=== PATIENT | male | born 1975 | race Caucasian/White ===

== ENCOUNTER 2017-09-11 08:52 | Emergency (ER) | payer BC, OTHER ==
[2017-09-11 09:05] VITALS: BP 136/92
--- NOTE | 2017-09-11 09:18 | UC ---
Shortness of Breath HPI - HPI Summary HPI Summary: cough x 7 days cough is dry , + nasal congestion, pnd, + sob and wheezing hx of frequent pneumonia - History of Current Complaint Chief Complaint: UCRespiratory Stated Complaint: COUGH CONGESTION Time Seen by Provider: 09/11/17 09:06 Hx Obtained From: Patient Onset/Duration: Gradual Onset, Lasting Days - 5, Still Present Timing: Constant Current Severity: Moderate Dyspnea At: Rest Aggrevating Factors: Deep Breaths Associated Signs & Symptoms: Positive: Cough (Nonproductive), Wheezing, Chills, Nasal Congestion. Negative: Chest Pain w/Cough, Chest Pain Unrelated to Cough, Fever, Diaphoresis, Dizzy, Calf Pain/Swelling - Allergy/Home Medications Allergies/Adverse Reactions: Allergies Allergy/AdvReac Type Severity Reaction Status Date / Time Morphine AdvReac Intermediate Vomiting Verified 09/11/17 09:00 Home Medications: Home Medications [id number] W/ APAP [Delsym Cough + Cold D... 5-99-341-325 mg/10Ml] 1 liq PO Q6H PRN 09/11/17 [History Confirmed 09/11/17] Pseudoephedrine TAB* [Sudafed TAB*] 30 - 60 mg PO Q6H PRN 09/11/17 [History Confirmed 09/11/17] PMH/Surg Hx/FS Hx/Imm Hx Respiratory History: Pneumonia - Surgical History Surgical History: None Surgery Procedure, Year, and Place: L shoulder 06/2011. R shoulder 1992, and 1990. L axilla lymph node 1988 - Family History Known Family History: Positive: Hypertension, Diabetes, Respiratory Disease, Other - positive for contusion - Social History Alcohol Use: Rare Alcohol Amount: 1 beer a week Substance Use Type: None Smoking Status (MU): Never Smoked Tobacco Have You Smoked in the Last Year: No - Immunization History Most Recent Influenza Vaccination: June 2017 Most Recent Tetanus Shot: 2004 Most Recent Pneumonia Vaccination: 12/10/12 Review of Systems Constitutional: Chills Skin: Negative Eyes: Negative ENT: Nasal Discharge Respiratory: Shortness Of Breath, Cough Is Patient Immunocompromised?: No All Other Systems Reviewed And Are Negative: Yes Physical Exam Triage Information Reviewed: Yes Appearance: Well-Appearing, No Pain Distress, Well-Nourished Vital Signs: Initial Vital Signs Temp 98.1 F 09/11/17 08:56 Pulse 76 09/11/17 08:56 Resp 18 09/11/17 08:56 BP 136/92 09/11/17 08:56 Pulse Ox 98 09/11/17 08:56 Vital Signs Reviewed: Yes Eyes: Positive: Conjunctiva Clear ENT: Positive: Normal ENT inspection, Hearing grossly normal, Nasal congestion, Nasal drainage, TMs normal Neck exam: Normal Neck: Positive: Supple, Nontender, No Lymphadenopathy Respiratory: Positive: Chest non-tender, Lungs clear, Normal breath sounds Cardiovascular: Positive: RRR, No Murmur, Pulses Normal Skin Exam: Normal Shortness of Breath Dx - Differential Dx/Diagnosis Provider Diagnoses: bronchitis Discharge - Discharge Plan Condition: Stable Disposition: HOME Prescriptions: Azithromycin TAB* [Zithromax TAB (Z-RYAN) 250 mg #6 tabs] 2 tab PO .TODAY, THEN 1 DAILY #1 ryan Benzonatate [TESSALON 200 MG CAP] 200 mg PO Q8H PRN #21 cap PRN Reason: Cough Patient Education Materials: Acute Bronchitis (ED) Referrals: John Carrillo MD [Primary Care Provider] - 7 Days
== END 2017-09-11 09:17 | disposition home or self-care (01) ==
LOC: UCCORT 08:52
DX: J40 Bronchitis, not specified as acute or chronic (principal)
CPT/HCPCS: 99212; G0463

== ENCOUNTER 2018-03-05 03:33 | Emergency (ER) | payer BC, OTHER ==
[2018-03-05] MEDS ORDERED: NS 0.9% 1000 ML* 1,000 ML IV ONE (04:03)
[2018-03-05] MEDS ORDERED: Ketorolac INJ* 30 MG/ML 1 ML VIAL IV PUSH ONE (04:04)
[2018-03-05] MEDS ORDERED: fentaNYL* 50 MCG/ML 2 ML VIAL (100 MCG VIAL) IV SLOW PU ONE (04:04)
[2018-03-05] MEDS ORDERED: Metoclopramide IV* 5 MG/ML 2 ML VIAL IV SLOW PU ONE (04:05)
[2018-03-05 04:19] LABS: ABS Basophils 0 10^3/ul (0-0.2); ABS Eosinophils 0.3 10^3/ul (0-0.6); ABS Lymphocytes 1.6 10^3/ul (1.0-4.8); ABS Monocytes 0.5 10^3/ul (0-0.8); ABS Neutrophils 3.3 10^3/ul (1.5-7.7); ABS Nucleated RBC 0 10^3/ul; Hematocrit 45 % (42-52); Hemoglobin 15.6 g/dl (14.0-18.0); Lymphocyte % 27.7 % (25-47); Mean Corpuscular HGB Conc 35 g/dl (31-36); Mean Corpuscular Hemoglobin 31 pg (27-31); Mean Corpuscular Volume 88 fL (80-94); Mean Platelet Volume 8.4 um3 (7.4-10.4); Nucleated Red Blood Cells % 0.1; Platelet Count 219 10^3/ul (150-450); Red Blood Count 5.08 10^6/ul (4.0-5.4); Red Cell Distribution Width 14 % (10.5-15); White Blood Count 5.7 10^3/ul (3.5-10.8)
[2018-03-05 04:21] LABS: Urine Appearance Cloudy; Urine Blood 3+ (Negative); Urine Color Yellow; Urine Ketones Negative (Negative); Urine Protein 1+(30 mg/dL) (Negative); Urine Urobilinogen Negative (Negative)
[2018-03-05 04:34] LABS: EGFR Non-African American 101.6 (>60)
[2018-03-05] MEDS ORDERED: Tamsulosin CAP* 0.4 MG PO ONE (05:21)
[2018-03-05 05:31] VITALS: BP 126/81
--- NOTE | 2018-03-05 05:41 | ED ---
Tra Malin Rebecca, scribed for Rui Calles MD on 03/05/18 at 0350 . GI/ HPI - HPI Summary HPI Summary: Pt is a 42 y/o M who presents to ED c/o right testicular pain. Pain began 1 hour ago, waking him up from sleep. Initially, pain was severe, though it is now moderate, ranked 5/10. Describes the sensation as that it "feels like it's in a vice." Did not take any medication for pain [employer]. Additionally c/o diarrhea. Denies N/V and testicular swelling. No trauma. Prior similar episode 20 years ago when he had kidney stones. - History of Current Complaint Chief Complaint: EDUrogenitalProblems Time Seen by Provider: 03/05/18 03:47 Stated Complaint: FLANK PAIN Hx Obtained From: Patient Onset/Duration: Started Hours Ago - 1 hour ago, Still Present Severity: Severe Current Severity: Moderate Pain Intensity: 5 Additional Locations for Males: Testicles - Right Associated Signs and Symptoms: Positive: Diarrhea. Negative: Nausea, Vomiting Aggravating Factor(s): Nothing Alleviating Factor(s): Nothing - Allergy/Home Medications Allergies/Adverse Reactions: Allergies Allergy/AdvReac Type Severity Reaction Status Date / Time morphine AdvReac Intermediate Vomiting Verified 03/05/18 03:42 PMH/Surg Hx/FS Hx/Imm Hx Endocrine/Hematology History: Denies: Hx Diabetes, Hx Thyroid Disease Comment Only: Other Endocrine/Hematological Disorders - lymph node removal left armpiy 1988 Cardiovascular History: Denies: Hx Hypercholesterolemia, Hx Hypertension, Hx Pacemaker/ICD, Hx Peripheral Vascular Disease Respiratory History: Reports: Hx Asthma, Hx Pneumonia - 11/2013 at [facility] [place], [place] Denies: Other Respiratory Problems/Disorders GI History: Reports: Hx Irritable Bowel History: Reports: Hx Kidney Stones - 1999 Musculoskeletal History: Reports: Hx Back Problems, Other Musculoskeletal History - shoulder reconstruction Denies: Hx Arthritis, Hx Osteoporosis Sensory History: Denies: Hx Cataracts, Hx Contacts or Glasses, Hx Glaucoma, Hx Hearing Aid Opthamlomology History: Denies: Hx Cataracts, Hx Contacts or Glasses, Hx Glaucoma Neurological History: Denies: Hx Headaches, Hx Seizures, Hx Transient Ischemic Attacks (TIA) Psychiatric History: Denies: Hx Anxiety, Hx Depression, Hx Panic Disorder - Surgical History Surgery Procedure, Year, and Place: L shoulder 06/2011. R shoulder 1992, and 1990. L axilla lymph node 1988 Infectious Disease History: No Infectious Disease History: Denies: Traveled Outside the [place] in Last 30 Days - Family History Known Family History: Positive: Hypertension, Diabetes, Respiratory Disease, Other - positive for contusion - Social History Alcohol Use: Rare Alcohol Amount: 1-2 drinks per week Hx Substance Use: No Substance Use Type: Reports: None Hx Tobacco Use: No Smoking Status (MU): Never Smoked Tobacco Have You Smoked in the Last Year: No Review of Systems Negative: Fever Positive: Diarrhea. Negative: Vomiting, Nausea Positive: pain - Right testicle, other - NEGATIVE: Testicular swelling All Other Systems Reviewed And Are Negative: Yes Physical Exam - Summary Physical Exam Summary: VITAL SIGNS: Reviewed. GENERAL: ~Patient is an obese male who is lying comfortable in the stretcher. Patient is not in any acute respiratory distress. HEAD AND FACE: No signs of trauma. No ecchymosis, hematomas or skull depressions. No sinus tenderness. EYES: PERRLA, EOMI x 2, No injected conjunctiva, no nystagmus. EARS: Hearing grossly intact. Ear canals and tympanic membranes are within normal limits. MOUTH: Oropharynx within normal limits. NECK: Supple, trachea is midline, no adenopathy, no JVD, no carotid bruit, no c- spine tenderness, neck with full ROM. CHEST: Symmetric, no tenderness at palpation LUNGS: Clear to auscultation bilaterally. No wheezing or crackles. CVS: Regular rate and rhythm, S1 and S2 present, no murmurs or gallops appreciated. ABDOMEN: Soft, mild RLQ tenderness. No signs of distention. No rebound no guarding, and no masses palpated. Bowel sounds are normal. EXTREMITIES: FROM in all major joints, no edema, no cyanosis or clubbing. NEURO: Alert and oriented x 3. No acute neurological deficits. Speech is normal and follows commands. SKIN: Dry and warm Inguinal: Right testicle is lower than the left testicle with mild tenderness and without swelling or erythema Triage Information Reviewed: Yes Vital Signs On Initial Exam: Initial Vitals Temp Pulse Resp BP Pulse Ox 96.8 F 69 16 134/80 97 03/05/18 03:38 03/05/18 03:38 03/05/18 03:38 03/05/18 03:38 03/05/18 03:38 Vital Signs Reviewed: Yes Diagnostics - Vital Signs Vital Signs Temp Pulse Resp BP Pulse Ox 03/05/18 03:38 96.8 F 69 16 134/80 97 - Laboratory Result Diagrams: 03/05/18 04:10 03/05/18 04:10 Lab Statement: Any lab studies that have been ordered have been reviewed, and results considered in the medical decision making process. - CT CT Abd/Pel CT Interpretation: Positive (See Comments) - Positive for a 3.7 mm obstructing distal right ureteral stone (slightly proximal to the right UPJ). This is causing mild right hydronephrosis/hydroureter. Nonobstructing left renal stone. No left urinary tract obstruction. No other acute intra-abdominal abnormalities. Probable mangioma L4 vertebral body. ED physician reviewed this report. Pending official report. CT Interpretation Completed By: Radiologist Re-Evaluation - Re-Evaluation First Eval Re-Evaluation Time: 05:23 Change: Improved Comment: Discussed results. The pt is currently pain free. GIGU Course/Dx - Course Assessment/Plan: Pt is a 42 y/o M who presents to ED c/o right testicular pain for 1 hour, initially severe, now moderate, described as that it "feels like it' s in a vice." Did not take any medication for pain [employer]. Additionally c/o diarrhea. Denies N/V and testicular swelling. No trauma. Prior similar episode 20 years ago when he had kidney stones. CT Abd/pel reveals a 3.7 mm obstructing distal right ureteral stone with full impression above. Blood work and UA were done. UA had 3+ blood, 3+ RBV and 1+ protein. In the ED course, pt received fentanyl, Toradol, Reglan, Flomax and fluids which improved symptoms and on reevaluation, the pt is pain free. Pt will be D/C to home with Dx of renal colic and right ureteral stone with Rx for Percocet and Floma and a follow up with urology. He understands and agrees. Allergy noted. - Diagnoses Provider Diagnoses: Right ureteral stone, Renal colic Discharge - Sign-Out/Discharge Documenting (check all that apply): Discharge/Admit/Transfer - Discharge - Discharge Plan Condition: Stable Disposition: HOME Prescriptions: oxyCODONE/Acetamin 5/325 MG* [Percocet 5/325 TAB*] 1 tab PO Q6H PRN #14 tab MDD 4 PRN Reason: Pain Tamsulosin CAP* [Flomax CAP*] 0.4 mg PO DAILY #7 cap Patient Education Materials: Renal Colic (ED), Ureteral Stones (ED) Referrals: John Carrillo MD [Primary Care Provider] - 3 Days Matt Allen MD [Medical Doctor] - 3 Days Additional Instructions: RETURN TO ED FOR ANY NEW OR WORSENING SYMPTOMS. The documentation as recorded by the Tra david Rebecca accurately reflects the service I personally performed and the decisions made by Stevan gomez Abdul, MD.
--- NOTE | 2018-03-05 08:05 | RAD ---
CLINICAL HISTORY: Flank pain COMPARISON: None TECHNIQUE: Multiple contiguous axial CT scans were obtained of the abdomen and pelvis, without intravenous contrast enhancement. Coronal and sagittal multiplanar reformations are submitted for review. FINDINGS: The study is limited by the lack of intravenous contrast. This limits evaluation of the solid organs and vasculature. LUNG BASES: The lung bases are clear. LIVER: The liver is normal in shape, size, contour, and attenuation. BILE DUCTS: There is no intrahepatic or extrahepatic biliary dilatation. GALLBLADDER: The gallbladder is normal, without pericholecystic inflammatory change. PANCREAS: The pancreas is normal, without mass or ductal dilatation. SPLEEN: There are calcified granulomas of the spleen. UPPER GI TRACT: Evaluation of the gastrointestinal tract is limited by incomplete gastric distention. The upper GI tract is unremarkable. SMALL BOWEL AND MESENTERY: The small bowel is normal in contour, course, and caliber. There is no obstruction or dilatation. COLON: The colon is normal in contour, course, caliber. There is no pericolonic inflammatory change. There is a tubular, vermiform, hollow viscus that is blind ending, and originates from the cecum, consistent with a normal appendix. There is no periappendiceal inflammatory change. Best seen on axial images 91 through 109. ADRENALS: Normal bilaterally. KIDNEYS: There is prominent column of Theodore on the right with partial dislocation of the right renal collecting system. There is a 0.4 cm calculus of the distal right ureter. There is mild hydroureter. There is nonobstructing 0.2 cm left renal calyceal stone. BLADDER: The bladder is incompletely distended but is grossly normal. PELVIC ORGANS: The prostate gland is normal. The seminal vesicles are symmetric. AORTA: The aorta is normal. IVC: Unremarkable LYMPH NODES: There is no lymphadenopathy by size criteria. ABDOMINAL WALL: There is no evidence for abdominal wall hernia. BONES AND SOFT TISSUES: Degenerative changes are noted most advanced at L4-L5 and L5-S1. There is a hemangioma of L4. OTHER: None IMPRESSION: BILATERAL NEPHROLITHIASIS INCLUDING A 0.4 CM CALCULUS OF THE DISTAL RIGHT URETER WITH MILD HYDRONEPHROSIS.
== END 2018-03-05 05:44 | disposition home or self-care (01) ==
LOC: ED 03:33
DX: N13.2 Hydronephrosis with renal and ureteral calculous obstruction (principal); R19.7 Diarrhea, unspecified; Z87.442 Personal history of urinary calculi; Z88.5 Allergy status to narcotic agent
CPT/HCPCS: 36415; 74176; 80053; 81003; 81015; 83690; 83735; 85025; 86140; 96361; 96374; 96375; 99283; J1885

== ENCOUNTER 2018-05-03 19:39 | Emergency (ER) | payer SELFPAY ==
[2018-05-03 19:59] VITALS: BP 137/93
--- NOTE | 2018-05-03 21:27 | UC ---
Lower Extremity/Ankle HPI - HPI Summary HPI Summary: c/o - History of Current Complaint Chief Complaint: UCLowerExtremity Stated Complaint: ANKLE INJURY Time Seen by Provider: 05/03/18 20:37 Hx Obtained From: Patient Onset/Duration: Sudden Onset, Lasting Days Severity Initially: Mild Severity Currently: Mild Pain Intensity: 3 Aggravating Factor(s): Standing, Ambulation Alleviating Factor(s): Rest, Elevation, Ice Able to Bear Weight: Yes - Risk Factors Gout Risk Factors: Age Over 40, Male DVT Risk Factors: Negative Septic Arthritis Risk Factor: Negative - Allergies/Home Medications Allergies/Adverse Reactions: Allergies Allergy/AdvReac Type Severity Reaction Status Date / Time morphine AdvReac Intermediate Vomiting Verified 05/03/18 19:59 PMH/Surg Hx/FS Hx/Imm Hx Previously Healthy: Yes - Surgical History Surgical History: Yes Surgery Procedure, Year, and Place: L shoulder 06/2011. R shoulder 1992, and 1990. L axilla lymph node 1988 - Family History Known Family History: Positive: Hypertension, Diabetes, Respiratory Disease, Other - positive for contusion - Social History Alcohol Use: Occasionally Alcohol Amount: 1-2 drinks per week Substance Use Type: None Smoking Status (MU): Never Smoked Tobacco Have You Smoked in the Last Year: No - Immunization History Most Recent Influenza Vaccination: June 2017 Most Recent Tetanus Shot: 2004 Most Recent Pneumonia Vaccination: 12/10/12 Review of Systems Musculoskeletal: Arthralgia, Myalgia All Other Systems Reviewed And Are Negative: Yes Physical Exam Triage Information Reviewed: Yes Appearance: Well-Appearing, No Pain Distress, Obese Vital Signs: Initial Vital Signs Temp 98.2 F 05/03/18 19:56 Pulse 86 05/03/18 19:56 Resp 18 05/03/18 19:56 BP 137/93 05/03/18 19:56 Pulse Ox 99 05/03/18 19:56 Vital Signs Reviewed: Yes Eyes: Positive: Conjunctiva Clear ENT: Positive: Hearing grossly normal Neck: Positive: Supple Respiratory: Positive: Chest non-tender Cardiovascular: Positive: Pulses Normal, Brisk Capillary Refill Musculoskeletal: Positive: Strength Intact, ROM Intact, Edema @ - lateral aspect right ankle. Loíza negative Skin Exam: Normal Lower Extremity Course/Dx - Course Course Of Treatment: LORENA bandage placed. Xray negative for fracture, has OA changes on ankle joint and thickened fibula on distal third, possible old injury. Elevate, ICE, referred PT - Differential Dx/Diagnosis Provider Diagnoses: right ankle sprain Discharge - Sign-Out/Discharge Documenting (check all that apply): Patient Departure, Post-Discharge Follow Up - Discharge Plan Condition: Good Disposition: HOME Patient Education Materials: Ibuprofen (By mouth), Ankle Sprain (ED) Referrals: John Carrillo MD [Primary Care Provider] - Additional Instructions: referral to PT - Billing Disposition and Condition Condition: GOOD Disposition: Home
--- NOTE | 2018-05-04 07:25 | RAD ---
Indication: Right ankle pain after fall. 3 views of the right ankle demonstrate soft tissue swelling laterally. No fracture is noted. Ankle mortise is unremarkable. Old injury of the fibular diaphysis is noted. IMPRESSION: No fracture is noted. Old injury of the fibula. Soft tissue swelling is noted. R0
== END 2018-05-03 21:31 | disposition home or self-care (01) ==
LOC: UCEAST 19:39
DX: S93.401A Sprain of unspecified ligament of right ankle, initial encounter (principal); X58.XXXA Exposure to other specified factors, initial encounter; Y93.9 Activity, unspecified; Y92.9 Unspecified place or not applicable; Z88.5 Allergy status to narcotic agent; Z82.49 Family history of ischemic heart disease and other diseases of the circulatory system; Z83.3 Family history of diabetes mellitus; Z83.6 Family history of other diseases of the respiratory system
CPT/HCPCS: 99212; G0463

== ENCOUNTER → 2019-01-06 10:18 | Day surgery (SDC) | payer BC ==
--- NOTE | 2019-01-04 21:04 | HP ---
HISTORY AND PHYSICAL: DATE OF PLANNED ADMISSION AND SURGERY: 01/06/19 HISTORY OF PRESENT ILLNESS: Mr. Brandt is a 43-year-old white male who is admitted with a distal left ureteral calculus for cystoscopy, left ureteroscopy , laser lithotripsy, and left ureteral stent insertion. Mr. Brandt has past history of renal calculus disease and about 10 months ago, he spontaneously passed a right ureteral calculus. On 09/27/18, while in [place], [place], he had an episode of severe left renal colic. He went to the emergency room there and had a CT, which showed a small calculus in the proximal left ureter associated with mild hydronephrosis. He was managed conservatively and placed on pain medication. He was followed in my office and had a followup renal ultrasound, and then a CT of the abdomen and pelvis on 12/07/18 showing a 4-mm calculus in the distal left ureter without associated hydronephrosis. He was continued to be managed conservatively.He presented back to my office 2 days prior to this admission with severe left flank pain associated with nausea. He did not have any fever or chills. He had a renal ultrasound in the office, which showed mild left hydroureteronephrosis and a 5-mm calculus in the distal left ureter 1.5 cm proximal to the ureterovesical junction. Because of the above history and the duration of his symptoms, the patient is admitted for the above procedure. PAST MEDICAL HISTORY AND SYSTEM REVIEW: He is very healthy. He has a long history of back pain and disk disease. MEDICATIONS: He is on no chronic medications. ALLERGIES: He has no allergies to medication, but he reports having an unpleasant reaction to morphine. FAMILY HISTORY: Negative. 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 He is a nonsmoker. PHYSICAL EXAMINATION GENERAL: He is an obese white male, who looks his age. VITAL SIGNS: Blood pressure 150/80, pulse of 66. LUNGS: Clear. HEART: Regular and rhythmic. No murmurs. ABDOMEN: Soft. There is [id number] left CVA tenderness. IMPRESSION: Recurrent episodes of left renal colic that started 3-1/2 months ago with a 5-mm calculus in the distal left ureter. PLAN: Considering the above history and the duration of his symptoms, the plan is for left ureteroscopy, laser lithotripsy, and left ureteral stent insertion. I discussed the above plans with the patient and his . He is supposed to strain his urine very carefully until the procedure, and he was instructed to call the office if the stone has passed spontaneously. [id number]/CPS #: [id number] MTDD
[~2019-01-06 10:18] MED LIST: Acetaminophen TAB* 325 MG ONE; Acetaminophen TAB* 325 MG PO PRN; Buffered Lidocaine 1% SYRIN* 1 ML/SYRINGE INTRADERM ONE; Chloroprocaine 2%* 20 ML VIAL ONE; Dexamethasone IV* 4 MG/ML 1 ML (4 MG) IV SLOW PU ONE; Dexamethasone IV* 4 MG/ML 1 ML (4 MG) ONE; DiMENhydriNATE IV* 50 MG/ML VIAL IV PUSH PRN; Famotidine TAB* 20 MG ONE; Famotidine TAB* 20 MG PO ONE; Furosemide IV* 10 MG/ML 2 ML VIAL (20 MG) ONE; HYDROcodone/ACETAMIN 5-325 MG* 1 TAB PO PRN; Iohexol 180 (CONTRAST) 10 ML SDV IV ONE; Ketorolac INJ* 30 MG/ML 1 ML VIAL IV PRN; Lactated Ringers 1000 ML Bag* 1,000 ML IV SCH; Lidocaine 2% PF * 5 ML VIAL ONE; Midazolam* 1 MG/ML 2 ML VIAL (2 MG) ONE; Naloxone* 0.4 MG/ML 1 ML VIAL IV PRN; Ondansetron INJ* 2 MG/ML VIAL IV PRN; Ondansetron INJ* 2 MG/ML VIAL ONE; PROCHLORPERAZINE INJ 5 MG/ML 2 ML VIAL IV PRN; Propofol* 10 MG/ML 20 ML BTL ONE; Scopolamine 1.5 mg* PATCH ONE; Scopolamine 1.5 mg* PATCH TRANSDERM SCH; cefTRIAXone(*) 2 GM ADDV.VIAL IVPB ONE; fentaNYL* 50 MCG/ML 2 ML VIAL (100 MCG VIAL) IV PRN; fentaNYL* 50 MCG/ML 2 ML VIAL (100 MCG VIAL) ONE
[2019-01-06 15:51] VITALS: BP 136/87
--- NOTE | 2019-01-06 22:25 | OP ---
DATE OF OPERATION: 01/06/19 - [facility] DATE OF : 75 SURGEON: Matt Allen MD ANESTHESIOLOGIST: Dr. Casanova. ANESTHESIA: General. PRE-OP DIAGNOSIS: Distal left ureteral calculus (5 mm). POST-OP DIAGNOSIS: Distal left ureteral calculus (5 mm). OPERATIVE PROCEDURE: Cystoscopy, left ureteroscopy, extraction of left ureteral calculus, left retrograde pyelography. INDICATION FOR PROCEDURE: Mr. Brandt is a 43-year-old white male who had an episode of left renal colic 3-1/2 months ago. He had a CT which showed a small proximal left ureteral calculus. He was managed conservatively and, over the last several months, he has been having on and off episodes of left flank pain. He presented to the office two days ago with three days' history of recurrent episodes of severe left renal colic. Renal and full bladder ultrasound showed mild left hydroureteronephrosis and a 5 to 6 mm calculus in the distal left ureter. Because of the above history and findings and the duration of his symptoms, the patient is admitted for endoscopic stone extraction. PATHOLOGY AT CYSTOSCOPY: The penile and bulbar urethrae looked normal. The prostatic urethra was short and open. Examination of the bladder showed normal mucosa. The ureteral orifices looked normal. There were no suspicious bladder lesion seen. No calculi or diverticula were noted. There was an impacted calculus measuring about 5 mm in size, located in the distal left ureter, about 1 cm proximal to the orifice. The calculus was irregular and had some sharp edges explaining why the stone has not passed in all this time. The calculus had the gross appearance of a calcium oxalate stone. Left retrograde pyelography showed minimal hydronephrosis. DESCRIPTION OF PROCEDURE: After successful general anesthesia, the patient was placed in the lithotomy position and was prepped and draped for a cystoscopy. Cystoscopy was performed. The bladder was carefully inspected and the above findings were noted. A flexible-tip guidewire was then introduced into the left orifice. Initially, the guidewire could not be pushed beyond the level of the stone because of its impaction. After several attempts, the guidewire was successfully introduced and positioned in the area of the renal pelvis. A size 6.5 semi-rigid tapered ureteroscope was then introduced inside the bladder. A flexible-tip basket was introduced into the port of the ureteroscope and the flexible tip was introduced into the left ureter alongside the guidewire. That allowed the atraumatic introduction of the ureteroscope inside the ureter. The calculus was identified. It was engaged in the basket. It was felt to be small enough it can be extracted without having to break it. The stone was then extracted with minimal trauma to the distal ureter and the stone was sent for a stone analysis. To make a decision whether a stent is going to be needed, a retrograde pyelography was performed and contrast was injected into the collecting system and the ureter. The open-ended catheter and the guidewire were removed and there was prompt and complete drainage of the contrast from the collecting system and the ureters. Decision was made not to place a stent. The patient tolerated the procedure well and left the operating room in good condition. Plan is to see the patient back in another month for reevaluation, earlier if he has any symptoms of colic. [id number]/CPS #: [id number] SARIKA
== END | disposition home or self-care (01) ==
LOC: OR 10:18
PROVIDERS: ATTEND Urology
DX: N13.2 Hydronephrosis with renal and ureteral calculous obstruction (principal); J45.909 Unspecified asthma, uncomplicated; K21.9 Gastro-esophageal reflux disease without esophagitis; M54.5 Low back pain
CPT/HCPCS: 62321; 74420; 82365; 88300; A9270-GY; J0696; J1100; J1940; J2250; J2400; J2405; J2704; J3010